=== PATIENT | female | born 1935 | race Caucasian/White ===

== ENCOUNTER 2018-01-11 13:47 | Emergency (ER) | payer MEDICARE, OTHER ==
[2018-01-11 13:47] VITALS: BMI 30.4
[2018-01-11 14:11] VITALS: TEMP 97.8; O2SAT 95
--- NOTE | 2018-01-11 14:25 | C.PDOC ---
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 PS TRIPPED AND FELL. HO CHRONIC L KNEE PAIN, UNABLE TO STAND UP UNASSISTED AFTER FALL DUE TO CHRONIC KNEE ARTHRITIS. SINCE THEN, AMBUL WO DIFF. NO LOC, NV. DENIES VISION CHANGE, NECK PAIN. DENIES ANTICOAG USE EXAM NAD NONTOXIC HEENT +L PERIRORB/FOREHEAD CONTUSION. EOMI; SCLERA CLEAR; NOSE WNL; SCALP ATRAUM NECK SPINE AROM WO DIFF NONTEND ATRUAM EXT L KNEE +BRUISING W SWELLING ANTERIOR. AROM WO DIFF. +SOFT TISS TEND. NO DEFORM. L ARM: +BRUISING DISTAL NONTEND. AROM SHOULDER, ELBOW, WRIST WO DIFF SKIN INTACT NEURO INTACT REMAIDNER NEG Time Seen by Provider: 01/11/18 14:16 Chief Complaint (Nursing): Headache Past Medical History Vital Signs: Last Vital Signs Temp 97.8 F 01/11/18 14:07 Pulse 75 01/11/18 14:07 Resp 20 01/11/18 14:07 BP 108/63 01/11/18 14:07 Pulse Ox 95 01/11/18 14:07 - Medical History PMH: Anemia, Arthritis, HTN, Hypercholesterolemia, Hyperlipidemia Denies: Chronic Kidney Disease Surgical History: Appendectomy, Cholecystectomy - Social History Hx Alcohol Use: No Hx Substance Use: No - Immunization History Hx Tetanus Toxoid Vaccination: No Hx Influenza Vaccination: Yes Hx Pneumococcal Vaccination: Yes ED Course And Treatment O2 Sat by Pulse Oximetry: 95 Disposition - Disposition
--- NOTE | 2018-01-11 14:25 | C.PDOC ---
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 PS TRIPPED AND FELL. HO CHRONIC L KNEE PAIN, UNABLE TO STAND UP UNASSISTED AFTER FALL DUE TO CHRONIC KNEE ARTHRITIS. SINCE THEN, AMBUL WO DIFF. NO LOC, NV. DENIES VISION CHANGE, NECK PAIN. DENIES ANTICOAG USE EXAM NAD NONTOXIC HEENT +L PERIRORB/FOREHEAD CONTUSION. EOMI; SCLERA CLEAR; NOSE WNL; SCALP ATRAUM NECK SPINE AROM WO DIFF NONTEND ATRUAM EXT L KNEE +BRUISING W SWELLING ANTERIOR. AROM WO DIFF. +SOFT TISS TEND. NO DEFORM. L ARM: +BRUISING DISTAL NONTEND. AROM SHOULDER, ELBOW, WRIST WO DIFF SKIN INTACT NEURO INTACT REMAIDNER NEG - HPI Time Seen by Provider: 01/11/18 14:16 Chief Complaint (Nursing): Headache Past Medical History Vital Signs: Last Vital Signs Temp 97.8 F 01/11/18 14:07 Pulse 75 01/11/18 14:07 Resp 20 01/11/18 14:07 BP 108/63 01/11/18 14:07 Pulse Ox 95 01/11/18 14:25 - Medical History PMH: Anemia, Arthritis, HTN, Hypercholesterolemia, Hyperlipidemia Denies: Chronic Kidney Disease Surgical History: Appendectomy, Cholecystectomy - Social History Hx Alcohol Use: No Hx Substance Use: No - Immunization History Hx Tetanus Toxoid Vaccination: No Hx Influenza Vaccination: Yes Hx Pneumococcal Vaccination: Yes ED Course And Treatment O2 Sat by Pulse Oximetry: 95 Disposition - Disposition Forms: [facility] (Armenian)
--- NOTE | 2018-01-11 15:11 | C.PDOC ---
History Of Present Illness 82 y/o female patient presents to the ER with complains of left knee, arm and face injury from a fall. Patient reports that she tripped and fell. Patient has Hx of chronic left knee pain and was unable to stand up unassisted after the fall due to chronic knee arthritis. After the fall, patient has been able to ambulate without difficulty. She denies loss of consciousness, nausea, vomiting , vision change, and neck pain. Patient also denies anticoagulant use. 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 PS TRIPPED AND FELL. HO CHRONIC L KNEE PAIN, UNABLE TO STAND UP UNASSISTED AFTER FALL DUE TO CHRONIC KNEE ARTHRITIS. SINCE THEN, AMBUL WO DIFF. NO LOC, NV. DENIES VISION CHANGE, NECK PAIN. DENIES ANTICOAG USE EXAM NAD NONTOXIC HEENT +L PERIRORB/FOREHEAD CONTUSION. EOMI; SCLERA CLEAR; NOSE WNL; SCALP ATRAUM NECK SPINE AROM WO DIFF NONTEND ATRUAM EXT L KNEE +BRUISING W SWELLING ANTERIOR. AROM WO DIFF. +SOFT TISS TEND. NO DEFORM. L ARM: +BRUISING DISTAL NONTEND. AROM SHOULDER, ELBOW, WRIST WO DIFF SKIN INTACT NEURO INTACT REMAIDNER NEG - HPI Time Seen by Provider: 01/11/18 14:16 Chief Complaint (Nursing): Headache History Per: Patient History/Exam Limitations: no limitations Injury Occurred (Timing): Just Before Arrival Location Of Injury: Left: Arm, Knee, Anterior: Face - Fall Fall:Prior To Injury: Tripped Past Medical History Reviewed: Historical Data, Nursing Documentation, Vital Signs Vital Signs: Last Vital Signs Temp 97.8 F 01/11/18 14:07 Pulse 75 01/11/18 14:07 Resp 20 01/11/18 14:07 BP 108/63 01/11/18 14:07 Pulse Ox 95 01/11/18 15:47 - Medical History PMH: Anemia, Arthritis, HTN, Hypercholesterolemia, Hyperlipidemia Surgical History: Appendectomy, Cholecystectomy Family History: States: No Known Family Hx - Social History Hx Alcohol Use: No Hx Substance Use: No - Immunization History Hx Tetanus Toxoid Vaccination: No Hx Influenza Vaccination: Yes Hx Pneumococcal Vaccination: Yes Review Of Systems Except As Marked, All Systems Reviewed And Found Negative. Eyes: Negative for: Vision Change ENT: Positive for: Other (+left sided face injury) Gastrointestinal: Negative for: Nausea, Vomiting Musculoskeletal: Positive for: Arm Pain (left arm injury), Other (+ left knee injury). Negative for: Neck Pain Neurological: Negative for: Other (loss of consciousness) Physical Exam - Physical Exam Appears: Non-toxic, No Acute Distress Skin: Normal Color, Warm, Dry Head: Atraumatic, Normacephalic Eye(s): bilateral: PERRL, EOMI, left: Other (+L periorbital/forehead contusion; clear sclera) Nose: Normal Neck: Normal ROM, No Midline Cervical Tenderness, No Paracervical Tenderness, Supple Chest: Symmetrical Cardiovascular: Rhythm Regular Respiratory: Normal Breath Sounds Gastrointestinal/Abdominal: Normal Exam, Soft, No Tenderness Back: Normal Inspection, No CVA Tenderness, No Vertebral Tenderness, No Paraspinal Tenderness Extremity: Normal ROM (left shoulder, elbow, and wrist without difficulty), No Deformity, Swelling (bruising and swelling to left anterior knee, +soft tissue tenderness.), Other (+ bruising to distal left arm; non-tender.) Extremity: Left: Other (+Left arm bruising distal, nontenderness) Pulses: Left Radial: Normal, Right Radial: Normal Neurological/Psych: Oriented x3, Normal Speech, Normal Motor, Normal Sensation Gait: Steady ED Course And Treatment O2 Sat by Pulse Oximetry: 95 (RA) Pulse Ox Interpretation: Normal - Other Rad X-ray knee X-Ray: Read By Radiologist Interpretation: no demonstrated fracture or dislocation. Tricompartmental degenerative changes. - CT Scan/US Head w/o contrast Other Rad Studies (CT/US): Read By Radiologist, Radiology Report Reviewed CT/US Interpretation: Left frontal scalp swelling/hematoma. No calv arial fracture. No acute intracranial pathology or hemorrhage. Maxillofacial w/o contrast Other Rad Studies (CT/US): Read By Radiologist, Radiology Report Reviewed CT/US Interpretation: Left frontal scalp swelling/hematoma. No calvarial fracture Progress Note: meds: Tylenol 650 mg Disposition Counseled Patient/Family Regarding: Studies Performed, Diagnosis, Need For Followup - Disposition Referrals: YOUR,PMD [Other] Disposition: HOME/ ROUTINE Disposition Time: 15:39 Condition: IMPROVED Instructions: Contusion (DC), Minor Head Injury (DC) Forms: [employer] (Bulgarian) - Clinical Impression Clinical Impression: Facial contusion, Multiple contusions - Scribe Statement The provider has reviewed the documentation as recorded by the Emili Glover Do Provider Attestation: All medical record entries made by the Emili were at my direction and personally dictated by me. I have reviewed the chart and agree that the record accurately reflects my personal performance of the history, physical exam, medical decision making, and the department course for this patient. I have also personally directed, reviewed, and agree with the discharge instructions and disposition.
--- NOTE | 2018-01-11 15:12 | RAD ---
Date of service: 01/11/2018 PROCEDURE: Left Knee Radiographs. HISTORY: Pain. COMPARISON: None. FINDINGS: BONES: No acute fracture. JOINTS: Tricompartmental narrowing degenerative spur. JOINT EFFUSION: None. OTHER FINDINGS: None. IMPRESSION: No demonstrated fracture or dislocation. Tricompartmental degenerative changes.
--- NOTE | 2018-01-11 15:21 | CT ---
Date of service: 01/11/2018 PROCEDURE: CT HEAD WITHOUT CONTRAST. HISTORY: TRAUMA COMPARISON: CT head dated 05/10/2015. TECHNIQUE: Axial computed tomography images were obtained through the head/brain without intravenous contrast. Radiation dose: Total exam DLP = 2014.7 mGy-cm. This CT exam was performed using one or more of the following dose reduction techniques: Automated exposure control, adjustment of the mA and/or kV according to patient size, and/or use of iterative reconstruction technique. FINDINGS: HEMORRHAGE: No intracranial hemorrhage. BRAIN: No mass effect or edema. Mild atrophy. Mild chronic microvascular ischemic changes. VENTRICLES: Unremarkable. No hydrocephalus. CALVARIUM: Unremarkable. PARANASAL SINUSES: Unremarkable as visualized. No significant inflammatory changes. MASTOID AIR CELLS: Unremarkable as visualized. No inflammatory changes. OTHER FINDINGS: Left frontal scalp swelling/hematoma. Indwelling bilateral hearing aids. IMPRESSION: Left frontal scalp swelling/hematoma. No calvarial fracture. No acute intracranial pathology or hemorrhage.
--- NOTE | 2018-01-11 15:25 | CT ---
Date of service: 01/11/2018 PROCEDURE: CT MAXILLOFACIAL BONES WITHOUT CONTRAST HISTORY: TRAUMA COMPARISON: None TECHNIQUE: Contiguous axial CT images of the maxillofacial bones were obtained. Coronal and sagittal reformats were generated. Radiation dose: Total exam DLP = 764.4 mGy-cm. This CT exam was performed using one or more of the following dose reduction techniques: Automated exposure control, adjustment of the mA and/or kV according to patient size, and/or use of iterative reconstruction technique. FINDINGS: NASAL BONES: Unremarkable. ORBITS: Unremarkable. PARANASAL SINUSES/ MASTOIDS: Clear. MAXILLA: Unremarkable. MANDIBLE/ TEMPOROMANDIBULAR JOINTS: Unremarkable. SKULL BASE: Unremarkable. TEMPORAL BONES: Middle ears and mastoid grossly unremarkable. OTHER FINDINGS: Left frontal scalp swelling/hematoma. IMPRESSION: Left frontal scalp swelling/ hematoma. No calvarial fracture.
[2018-01-11 15:48] VITALS: BP 110/71; PULSE 79; RESP 16
== END 2018-01-11 15:47 | disposition home or self-care (01) ==
LOC: C.ER 13:47
DX: S00.83XA Contusion of other part of head, initial encounter (principal); S80.02XA Contusion of left knee, initial encounter; S40.022A Contusion of left upper arm, initial encounter; W01.0XXA Fall on same level from slipping, tripping and stumbling without subsequent striking against object, initial encounter; Y92.9 Unspecified place or not applicable